=== PATIENT | male | born 1955 | race Caucasian/White ===

== ENCOUNTER → 2016-11-22 | Outpatient (REF) | payer MEDICAID | LOC: M LAB REF 18:19 | PROVIDERS: ATTEND Surgery | DX: D48.5 Neoplasm of uncertain behavior of skin (principal) ==

== ENCOUNTER 2023-03-15 10:23 | Day surgery (SDC) | payer MEDICARE ==
[~2023-03-15] VITALS: Ht 172.7 cm; Wt 76.0 kg
[~2023-03-15 10:23] MED LIST: NS 1,000 ML IV ONE
[2023-03-15] MEDS ORDERED: propofoL 200 MG/20 ML VIAL As Ordered ONE (11:20)
[2023-03-15] MEDS ORDERED: LIDOCAINE 2% 100MG/5ML SDV (FOR ANES.) As Ordered ONE (11:20)
[2023-03-15] MEDS ORDERED: fentaNYL 100 MCG/2 ML INJECTION As Ordered ONE (11:43)
[2023-03-15] MEDS ORDERED: ePHEDrine SULFATE 25 MG/5 ML(5MG/ML) SYRINGE As Ordered ONE (12:07)
[2023-03-15 12:14] VITALS: TEMP 97.5
[2023-03-15 12:35] VITALS: BP 119/69; O2SAT 96
== END 2023-03-15 12:41 | disposition home or self-care (01) ==
LOC: M OPP 10:23
PROVIDERS: ATTEND Internal Medicine Gastroenterology
DX: Z12.11 Encounter for screening for malignant neoplasm of colon (principal); Z86.010 Personal history of colon polyps; K64.0 First degree hemorrhoids; K22.89 Other specified disease of esophagus; K44.9 Diaphragmatic hernia without obstruction or gangrene; K22.70 Barrett's esophagus without dysplasia; K31.A19 Gastric intestinal metaplasia without dysplasia, unspecified site
CPT/HCPCS: 43239; 88305; G0105; J3010